=== PATIENT | female | born 1930 | race Caucasian/White ===

== ENCOUNTER → 2017-05-23 | Outpatient (CLI) | payer MEDICARE, BC ==
[~2017-05-23] MED LIST: ACETAMINOPHEN325 MG PO; ADVAIR 100-501 EAC1 IH; ALBUTEROL17 GM INH; ASPIRIN81 M2 PO; CENTRUM SILVER; COUMADIN1 MG PO; COZAAR PO; DIOVAN HCT 160-1 TAB PO; DIOVAN PO; EQUATE ALLERGY MED; FLONASE 0.05% N16 G1; FOLIC ACID PO; HYDROCODON-ACE1 EAC7 PO; IBUPROFEN800 MG PO; IMDUR-ER30 M1 PO; IRON325 ( 651 PO; KCL PO; LASIX PO; LASIX20 MG; LEVOCETIRIZINE D5 MG PO; LOPRESSOR PO; LORTAB 10/500 T1 TAB PO; MAGNESIUM; MAGNESIUM400 MG PO; METOPROLOL TAR25 MG PO; MOTRIN IB200 M1 PO; NORCO 5/325 TAB1 TAB PO; PRAVASTATIN SOD20 MG PO; PREDNISONE PO; RITE-AID PHARMACY; STOOL SOFTENER100 M1 PO; TYLENOL EXTRA500 M1 PO; XYZAL5 MG PO
--- NOTE | ~2017-05-23 | CR63 ---
[facility] A Service of [facility] & [facility] RADIOLOGY TEXT RESULTS PATIENT: NICOLE CEE LOCATION: [facility] : [birth year] UNIT #: [id number] AGE: [address]: Mikayla López MD SEX: F ORDER DR: [id number] [facility] [address] [place], [place] [address] [id number] O MR#: [id number] Acc #: [id number] NAME: NICOLE CEE : 1930 SEX: F STUDY DATE/TIME: 05/23/2017 12:51 UNIT: [facility] ROOM: STUDY DESCRIPTION: CR Chest 2 View Attending Physician: Mikayla López M.D. Referring Physician: Mikayla López M.D. Ordering Physician: Mikayla López M.D. Primary Care Physician: Mao Gilman M.D. MEDICAL IMAGING REPORT This report is preliminary unless electronic signature is present EXAM PA and lateral chest INDICATION Shortness of air beginning today after pacemaker placement. Follow up pacemaker. FINDINGS PA and lateral views of the chest show a dual-lead pacemaker in good position. There is no pneumothorax. The lungs are clear. The bones show mild degenerative changes. Dictated by... Dmitry Mark M.D. THIS IS AN ELECTRONICALLY VERIFIED REPORT Dmitry Mark M.D. at 05/24/2017 1:37 PM JOVANY/[email or web address] TD: 05/24/2017 08:28 JOB #: [id number] MEDICAL IMAGING REPORT Page 1 of 1 COPY
== END | disposition home or self-care (01) ==
LOC: CRAD 12:27
DX: R06.02 Shortness of breath (principal); Z95.0 Presence of cardiac pacemaker
CPT/HCPCS: 71020